=== PATIENT | male | born 2000 | race African-American/Black ===

== ENCOUNTER 2018-09-06 16:55 | Emergency (ER) | payer SELFPAY ==
[~2018-09-06] VITALS: Ht 190.5 cm; Wt 93.9 kg
[2018-09-06 17:15] VITALS: Ht 190.5 cm; Wt 93.9 kg
[2018-09-06 19:27] VITALS: BP 123/65
== END 2018-09-06 19:27 | disposition home or self-care (01) ==
LOC: ED 16:55
DX: J06.9 Acute upper respiratory infection, unspecified (principal); Z98.890 Other specified postprocedural states